=== PATIENT | female | born 1965 | race African-American/Black ===

== ENCOUNTER 2018-04-25 13:36 | Outpatient (CLI) | payer MEDICAID ==
[2018-04-25 13:52] LABS: BASOPHILS # (AUTO) 0.1 10^3/uL (0.0-0.1); EOSINOPHILS # (AUTO) 0.1 10^3/uL (0.0-0.7); HGB - HEMOGLOBIN 13.3 g/dL (12.0-16.0); LYMPHOCYTES # (AUTO) 2.7 10^3/uL (1.5-3.5); LYMPHOCYTES % (AUTO) 36.6 %; MEAN CORPUSCULAR HEMOGLOBIN 30.3 pg (27.0-31.0); MEAN CORPUSCULAR HGB CONC 33.2 g/dL (32.0-36.0); MEAN CORPUSCULAR VOLUME 91.3 fL (81.0-99.0); MEAN PLATELET VOLUME 10.2 fL (7.9-10.8); MONOCYTES # (AUTO) 0.3 10^3/uL (0.0-1.0); MONOCYTES % (AUTO) 4.4 %; NEUTROPHILS # (AUTO) 4.2 10^3/uL (1.5-6.6); PLT - PLATELET COUNT 216 10^3/uL (130-450); RED BLOOD COUNT 4.39 10^6/uL (4.20-5.40); RED CELL DISTRIBUTION WIDTH 13.6 % (12.0-15.0); WHITE BLOOD COUNT 7.4 x10^3/uL (4.8-10.8)
[2018-04-25 14:11] LABS: ALBUMIN 3.6 g/dL (3.2-5.5); ALBUMIN/GLOBULIN RATIO 1.1 (1.0-2.2); ALKALINE PHOSPHATASE 88 IU/L (42-121); ALT ALANINE AMINOTRANSFERASE 15 IU/L (10-60); AST ASPARTATE AMINOTRANSFERASE 21 IU/L (10-42); BILIRUBIN,TOTAL 0.8 mg/dL (0.2-1.0); BUN - BLOOD UREA NITROGEN 23 mg/dL (6-20); CALCIUM 9.4 mg/dL (8.5-10.3); CARBON DIOXIDE - CO2 28 mmol/L (21-32); CHLORIDE 97 mmol/L (101-111); CHOL/HDL RATIO 1.6 (<4.4); CHOLESTEROL 137 mg/dL; CREATININE 0.8 mg/dL (0.4-1.0); GFR - MDRD 91 (>89); GLUCOSE 286 mg/dL (70-100); HDL CHOLESTEROL 86 mg/dL; LDL CHOLESTEROL,CALCULATED 24 mg/dL; LDL/HDL RATIO 0.3 (<4.4); SODIUM 136 mmol/L (135-145); TOTAL PROTEIN 6.8 g/dL (6.7-8.2); VLDL CHOLESTEROL 27 mg/dL
[2018-04-25 14:21] LABS: THYROID STIMULATING HORMONE 1.1 uIU/mL (0.34-5.60)
[2018-04-25 14:40] LABS: HB2 TOTAL 14.5 g/dL; HEMOGLOBIN A1C 1.63 g/dL; HEMOGLOBIN A1C % 12.4 % (4.6-6.2)
== END 2018-04-25 13:37 | disposition home or self-care (01) ==
LOC: LAB 13:36
PROVIDERS: ATTEND Nurse Practitioner Gerontology
DX: I10 Essential (primary) hypertension (principal); E11.9 Type 2 diabetes mellitus without complications
CPT/HCPCS: 36415; 80053; 80061; 82043; 82607; 83036; 83721; 84443; 85025

== ENCOUNTER 2018-06-13 09:04 | Outpatient (CLI) | payer MEDICAID | END 2018-06-13 09:05 | disposition home or self-care (01) | LOC: RT 09:04 | PROVIDERS: ATTEND Internal Medicine Gastroenterology | DX: I10 Essential (primary) hypertension (principal); Z86.73 Personal history of transient ischemic attack (TIA), and cerebral infarction without residual deficits | CPT/HCPCS: 93005 ==

== ENCOUNTER 2018-06-16 07:07 | Day surgery (SDC) | payer MEDICAID ==
[2018-06-16] MEDS ORDERED: LACTATED RINGERS 1,000 ML IV ONE (08:14)
[2018-06-16] MEDS ORDERED: fentaNYL 250 MCG/5 ML VIAL IVP ONE (08:42)
[2018-06-16] MEDS ORDERED: MIDAZOLAM 2 MG/2 ML VIAL IVP ONE (08:42)
[2018-06-16 09:55] VITALS: BP 129/57
== END 2018-06-16 07:08 | disposition home or self-care (01) ==
LOC: SDS 07:07
PROVIDERS: ATTEND Internal Medicine Gastroenterology
PROC: 0DJD8ZZ Inspection of Lower Intestinal Tract, Via Natural or Artificial Opening Endoscopic (ICD-10-PCS; principal; 2018-06-16 08:15)
DX: Z12.11 Encounter for screening for malignant neoplasm of colon (principal); Z72.0 Tobacco use; I10 Essential (primary) hypertension; E11.9 Type 2 diabetes mellitus without complications; F41.9 Anxiety disorder, unspecified; Z79.4 Long term (current) use of insulin; Z79.899 Other long term (current) drug therapy; Z79.02 Long term (current) use of antithrombotics/antiplatelets; Z86.73 Personal history of transient ischemic attack (TIA), and cerebral infarction without residual deficits; F32.9 Major depressive disorder, single episode, unspecified
CPT/HCPCS: 45378; J3010; J7120

== ENCOUNTER 2018-08-10 12:00 | Outpatient (CLI) | payer MEDICAID ==
[2018-08-10 12:41] LABS: HB2 TOTAL 13.8 g/dL; HEMOGLOBIN A1C 0.66 g/dL; HEMOGLOBIN A1C % 6.5 % (4.6-6.2)
== END 2018-08-10 12:01 | disposition home or self-care (01) ==
LOC: LAB 12:00
PROVIDERS: ATTEND Nurse Practitioner Gerontology
DX: E11.9 Type 2 diabetes mellitus without complications (principal); E53.8 Deficiency of other specified B group vitamins
CPT/HCPCS: 36415; 82607; 83036

== ENCOUNTER 2018-11-14 09:00 | Outpatient (CLI) | payer MEDICAID ==
[2018-11-14 09:40] LABS: CALCIUM 8.6 mg/dL (8.5-10.3); CREATININE 4.4 mg/dL (0.4-1.0)
[2018-11-14 10:10] LABS: HEMOGLOBIN A1C 0.68 g/dL; HEMOGLOBIN A1C % 6.9 % (4.6-6.2)
== END 2018-11-14 09:01 | disposition home or self-care (01) ==
LOC: LAB 09:00
PROVIDERS: ATTEND Nurse Practitioner Gerontology
DX: E11.9 Type 2 diabetes mellitus without complications (principal)
CPT/HCPCS: 36415; 80048; 83036

== ENCOUNTER 2019-01-17 15:36 | Outpatient (CLI) | payer MEDICAID ==
--- NOTE | 2019-01-17 22:41 | Ultrasound Report ---
Reason: ABNORMAL KIDNEY FUNCTION Procedure Date: 01/17/2019 Accession Number: [id number] / [id number] Procedure: US - Retroperitoneal CPT Code: FULL RESULT: EXAM: RENAL ULTRASOUND EXAM DATE: 01/17/2019 04:30 PM. CLINICAL HISTORY: ABNORMAL KIDNEY FUNCTION. COMPARISON: None. TECHNIQUE: Real-time scanning was performed with static images obtained. FINDINGS: Right Kidney: 10.1 x 6 x 5.4 cm. Normal echotexture with no stones, contour-deforming masses, or hydronephrosis. Prominent column of Mario. Left Kidney: 10.1 x 5 x 5.5 cm. Normal echotexture with no stones, contour-deforming masses, or hydronephrosis. Prominent pulmonary Mario. Bladder: Neither ureteral jet seen. Bladder was contracted and not well evaluated. The postvoid bladder volume was 7.2 cc. Other: Study limited by body habitus. IMPRESSION: 1. No renal mass, stone or hydronephrosis. 2. Contracted bladder not well evaluated. 3. Study limited by body habitus. RADIA
== END 2019-01-17 15:37 | disposition home or self-care (01) ==
LOC: DI 15:36
PROVIDERS: ATTEND Internal Medicine Nephrology
DX: N28.9 Disorder of kidney and ureter, unspecified (principal)
CPT/HCPCS: 76770

== ENCOUNTER 2019-06-01 | Outpatient (CLI) | payer MEDICAID | END 2019-06-01 23:59 | disposition home or self-care (01) | DX: I10 Essential (primary) hypertension (principal); E11.9 Type 2 diabetes mellitus without complications | CPT/HCPCS: 36415; 80053; 80061; 83036; 83721; 85025 ==

== ENCOUNTER 2019-06-21 12:57 | Outpatient (CLI) | payer MEDICAID ==
[2019-06-21 13:23] LABS: CALCIUM 9.3 mg/dL (8.5-10.3)
[2019-06-21 13:31] LABS: BILIRUBIN,URINE NEGATIVE (NEGATIVE); GLUCOSE, URINE (UA) NEGATIVE (NEGATIVE); KETONES,URINE (UA) NEGATIVE (NEGATIVE); LEUKOCYTE ESTERASE, URINE LARGE (NEGATIVE); NITRITE,URINE NEGATIVE (NEGATIVE); OCCULT BLOOD,URINE NEGATIVE (NEGATIVE); PROTEIN,URINE NEGATIVE (NEGATIVE); UROBILINOGEN,URINE 0.2 (NORMAL) E.U./dL (NORMAL)
[2019-06-21 13:40] LABS: BACTERIA,URINE Many /HPF (None Seen); CLARITY,URINE CLEAR (CLEAR); SQUAMOUS EPITHELIAL CELL,UR FEW Squamous (<= Few)
== END 2019-06-21 12:58 | disposition home or self-care (01) ==
LOC: LAB 12:57
PROVIDERS: ATTEND Internal Medicine Nephrology
DX: N17.9 Acute kidney failure, unspecified (principal)
CPT/HCPCS: 36415; 80048; 81001; 87086

== ENCOUNTER 2019-07-05 13:01 | Outpatient (CLI) | payer MEDICAID ==
[2019-07-05 14:09] LABS: ALBUMIN 3.5 g/dL (3.2-5.5); CALCIUM 9.2 mg/dL (8.5-10.3); CREATININE 2.6 mg/dL (0.4-1.0); PHOSPHORUS 4.8 mg/dL (2.5-4.6)
== END 2019-07-05 13:02 | disposition home or self-care (01) ==
LOC: LAB 13:01
PROVIDERS: ATTEND Internal Medicine Nephrology
DX: N17.9 Acute kidney failure, unspecified (principal)
CPT/HCPCS: 36415; 80069

== ENCOUNTER 2019-08-02 16:07 | Outpatient (CLI) | payer MEDICAID ==
[2019-08-02 16:48] LABS: ALBUMIN 3.7 g/dL (3.2-5.5); CALCIUM 9.1 mg/dL (8.5-10.3); CREATININE 2.5 mg/dL (0.4-1.0); PHOSPHORUS 4.5 mg/dL (2.5-4.6)
== END 2019-08-02 16:08 | disposition home or self-care (01) ==
LOC: LAB 16:07
PROVIDERS: ATTEND Internal Medicine Nephrology
DX: N17.9 Acute kidney failure, unspecified (principal)
CPT/HCPCS: 36415; 80069

== ENCOUNTER 2019-09-04 18:30 | Outpatient (CLI) | payer MEDICAID ==
[2019-09-04 19:11] LABS: CALCIUM 9.8 mg/dL (8.5-10.3); CREATININE 2.2 mg/dL (0.4-1.0)
[2019-09-04 19:34] LABS: HB2 TOTAL 10.5 g/dL; HEMOGLOBIN A1C 0.58 g/dL; HEMOGLOBIN A1C % 7.2 % (4.6-6.2)
== END 2019-09-04 18:31 | disposition home or self-care (01) ==
LOC: LAB.N 18:30
PROVIDERS: ATTEND Nurse Practitioner Gerontology
DX: E11.9 Type 2 diabetes mellitus without complications (principal); N28.9 Disorder of kidney and ureter, unspecified
CPT/HCPCS: 36415; 80048; 83036

== ENCOUNTER 2019-11-27 15:11 | Outpatient (CLI) | payer MEDICAID ==
[2019-11-27 15:34] LABS: CALCIUM 9.1 mg/dL (8.5-10.3); CREATININE 2.1 mg/dL (0.4-1.0)
== END 2019-11-27 15:12 | disposition home or self-care (01) ==
LOC: LAB 15:11
PROVIDERS: ATTEND Internal Medicine Nephrology
DX: N28.9 Disorder of kidney and ureter, unspecified (principal)
CPT/HCPCS: 36415; 80048

== ENCOUNTER 2020-05-08 09:11 | Emergency (ER) | payer MEDICAID ==
--- NOTE | 2020-05-08 09:45 | CT Report ---
PROCEDURE: HEAD WO INDICATIONS: Head injury. TECHNIQUE: Noncontrast 4.5 mm thick angled axial sections acquired from the foramen magnum to the vertex. For r adiation dose reduction, the following was used: automated exposure control, adjustment of mA and/or kV according to patient size. COMPARISON: None. FINDINGS: Image quality: Excellent. CSF spaces: Basal cisterns are patent. No extra-axial fluid collections. Ventricles are normal in size and shape. Brain: No midline shift. No intracranial masses or hemorrhage. No large area of hypodensity in a la rge vascular distribution to suggest acute infarction. There is mild periventricular hypodensity. The re is distal intracranial ICA and intracranial vertebral artery atherosclerotic calcifications. Skull and face: Calvarium and visualized facial bones are intact, without suspicious lesions. Sinuses: Visualized sinuses and mastoids are clear. IMPRESSION: 1. No acute intracranial abnormality. No acute intracranial hemorrhage. 2. Findings of early onset chronic microvascular ischemic disease. Reviewed by: Anthony Yip MD on 05/08/2020 9:43 AM PDT Approved by: Anthony Yip MD on 05/08/2020 9:43 AM PDT Station ID: [id number]
[2020-05-08] MEDS ORDERED: BUFFERED LIDOCAINE 10 ML SYRINGE SUBQ STA (10:48)
--- NOTE | 2020-05-08 10:48 | ED Physician Documentation ---
PD HPI HEAD INJURY - Stated complaint Stated Complaint: HEAD INJURY - Chief complaint Chief Complaint: Trauma Hd/Nk - History obtained from History obtained from: Patient - Additional information Additional information: She was working with a lawnmower blade last night and the lawnmower was tipped on its side and it fell and the handle hit her in the left christianity and she is had persistent bleeding ever since. No headache. Tetanus is up-to-date. Review of Systems Constitutional: reports: Reviewed and negative Eyes: reports: Reviewed and negative Ears: reports: Reviewed and negative Nose: reports: Reviewed and negative Throat: reports: Reviewed and negative PD PAST MEDICAL HISTORY - Past Medical History Past Medical History: Yes Cardiovascular: Hypertension Respiratory: None Endocrine/Autoimmune: Type 2 diabetes GI: Other : Incontinence HEENT: Chronic vision loss, Other Psych: Depression, Anxiety Musculoskeletal: None Derm: Other - Present Medications Home Medications: Ambulatory Orders Medication Instructions Recorded Confirmed Aspirin [Aspirin EC] 81 tab PO DAILY 06/16/18 06/16/18 Calcium Citrate/Vitamin D3 1 tab PO DAILY 06/16/18 06/16/18 [Calcium Cit 200-Vit D3 250 Tab] Cetirizine [ZyrTEC] 10 mg PO ONCE 06/16/18 06/16/18 Cholecalciferol (Vitamin D3) 2,000 tab PO DAILY 06/16/18 06/16/18 [Vitamin D3] Clopidogrel [Plavix] 1 tab PO DAILY 06/16/18 06/16/18 Cyanocobalamin (Vitamin B-12) 1,000 mcg PO DAILY 06/16/18 06/16/18 [Vitamin B-12] Dextrose/Maltodextrin [Glucose 1 packet PO PRN PRN 06/16/18 06/16/18 Powder Packets] Ferrous Sulfate 1 tab PO DAILY 06/16/18 06/16/18 Fluconazole [Diflucan] 150 mg PO DAILY 06/16/18 06/16/18 Insulin Glargine [Lantus Solostar] 40 units SQ DAILY 06/16/18 06/16/18 Lancets 1 misc DAILY 06/16/18 06/16/18 Metformin HCl 1,000 tab PO BID 06/16/18 06/16/18 Metoprolol Tartrate 25 tab PO BID 06/16/18 06/16/18 PARoxetine [Paxil] 50 tab PO DAILY 06/16/18 06/16/18 Pen Needle, Diabetic [Pen [place]] 1 unit SQ DAILY 06/16/18 06/16/18 Simvastatin 20 tab PO DAILY 06/16/18 06/16/18 lisinopriL [Lisinopril] 1 tab PO DAILY 06/16/18 06/16/18 - Allergies Allergies/Adverse Reactions: Allergies Allergy/AdvReac Type Severity Reaction Status Date / Time No Known Drug Allergies Allergy Verified 06/16/18 08:28 - Social History Does the pt smoke?: Yes Smoking Status: Current every day smoker Does the pt drink ETOH?: No Does the pt have substance abuse?: No - Immunizations Immunizations are current?: Yes PD ED PE NORMAL - Vitals Vital signs reviewed: Yes - General General: Alert and oriented X 3, No acute distress - HEENT HEENT: PERRL, EOMI, Other (On initial exam is a little hard to tell where she is bleeding from, the hair is matted in blood. After shower and a lot of s crubbing basically she just had a little puncture wound that was persistently bleeding on the left superior christianity.) - Neck Neck: Supple, no meningeal sign, No bony TTP - Neuro Neuro: Alert and oriented X 3, No motor deficit, No sensory deficit, Normal speech Results - Vitals Vitals: Vital Signs - 24 hr 05/08/20 05/08/20 09:22 10:32 Temperature 36.1 C L Heart Rate 63 65 Respiratory 18 16 Rate Blood Pressure 171/85 H 165/78 H O2 Saturation 96 98 Oxygen O2 Source Room air - Rads (name of study) CT of the head without contrast Radiology: EMP read contemporaneously (No trauma) Procedures - Laceration (location) scalp Length in cm: 0.4 Wound type: Linear Anesthesia: Lidocaine 1%, With bicarb Wound Preparation: Irrigated copiously NS Skin layer closure: Interrupted, Sutures - enter # (2), Other (2 x 5-0 vicryl to stop the bleeding) Other: Tetanus UTD Complexity: Simple PD MEDICAL DECISION MAKING - ED course ED course: Took quite a while to get all the blood out of her hair so that the wound could even be visualized, we actually had ended up taking her over the shower, after that the wound was tiny but it had a little arterial pumper to it and this was tied off with 25 0 Vicryl sutures. Departure - Departure Disposition: 01 Home, Self Care Clinical Impression: Head injury Qualifiers: Encounter type: initial encounter Qualified Code(s): S09.90XA - Unspecified injury of head, initial encounter Scalp laceration Qualifiers: Encounter type: initial encounter Qualified Code(s): S01.01XA - Laceration without foreign body of scalp, initial encounter Condition: Good Record reviewed to determine appropriate education?: Yes Instructions: ED Head Injury Closed, ED Laceration All Comments: The suture is absorbable, should not require any specific care, okay to shower and bathe. Return for new or worsening symptoms.
[2020-05-08 11:24] VITALS: BP 155/75
== END 2020-05-08 11:24 | disposition home or self-care (01) ==
LOC: ED 09:11
DX: S09.90XA Unspecified injury of head, initial encounter (principal); S01.01XA Laceration without foreign body of scalp, initial encounter; W20.8XXA Other cause of strike by thrown, projected or falling object, initial encounter; Y93.89 Activity, other specified; I10 Essential (primary) hypertension; E11.9 Type 2 diabetes mellitus without complications; Z79.4 Long term (current) use of insulin; F17.200 Nicotine dependence, unspecified, uncomplicated
CPT/HCPCS: 12001; 70450; 99282; 99284

== ENCOUNTER 2020-06-27 12:11 | Outpatient (CLI) | payer MEDICAID ==
[2020-06-27 12:56] LABS: CREATININE,URINE 220.6 mg/dL; MICROALBUM/CREATININE RATIO,UR 127.4 ug/mg (<30.0); MICROALBUMIN,URINE 28.1 mg/dL (0-300.0)
[2020-06-27 12:59] LABS: BUN - BLOOD UREA NITROGEN 25 mg/dL (6-20); CALCIUM 9.3 mg/dL (8.5-10.3); CARBON DIOXIDE - CO2 27 mmol/L (21-32); CHLORIDE 101 mmol/L (101-111); CHOL/HDL RATIO 1.8 (<4.4); CHOLESTEROL 162 mg/dL; GLUCOSE 321 mg/dL (70-100); HDL CHOLESTEROL 92 mg/dL; LDL CHOLESTEROL,CALCULATED 60 mg/dL; LDL/HDL RATIO 0.7 (<4.4); SODIUM 137 mmol/L (135-145); VLDL CHOLESTEROL 10 mg/dL
[2020-06-27 14:12] LABS: HEMOGLOBIN A1c% 10.2 % (4.27-6.07)
== END 2020-06-27 12:12 | disposition home or self-care (01) ==
LOC: LAB 12:11
PROVIDERS: ATTEND Family Medicine
DX: E11.9 Type 2 diabetes mellitus without complications (principal); E78.5 Hyperlipidemia, unspecified
CPT/HCPCS: 36415; 80048; 80061; 82043; 82570; 83036; 83721

== ENCOUNTER 2021-07-03 11:03 | Outpatient (CLI) | payer MEDICAID ==
[2021-07-03 11:26] LABS: BASOPHILS # (AUTO) 0.1 10^3/uL (0.0-0.1); BASOPHILS % (AUTO) 0.9 %; EOSINOPHILS # (AUTO) 0.2 10^3/uL (0.0-0.7); EOSINOPHILS % (AUTO) 1.9 %; HCT - HEMATOCRIT 40.3 % (37.0-47.0); HGB - HEMOGLOBIN 12.6 g/dL (12.0-16.0); LYMPHOCYTES # (AUTO) 2.2 10^3/uL (1.5-3.5); LYMPHOCYTES % (AUTO) 23.3 %; MEAN CORPUSCULAR HGB CONC 31.3 g/dL (32.0-36.0); MEAN CORPUSCULAR VOLUME 92.9 fL (81.0-99.0); MEAN PLATELET VOLUME 11.7 fL (7.9-10.8); MONOCYTES # (AUTO) 0.5 10^3/uL (0.0-1.0); MONOCYTES % (AUTO) 4.7 %; NEUTROPHILS # (AUTO) 6.5 10^3/uL (1.5-6.6); NEUTROPHILS % (AUTO) 68.9 %; PLT - PLATELET COUNT 231 10^3/uL (130-450); RED BLOOD COUNT 4.34 10^6/uL (4.20-5.40); RED CELL DISTRIBUTION WIDTH 12.4 % (12.0-15.0); WHITE BLOOD COUNT 9.5 x10^3/uL (4.8-10.8)
[2021-07-03 11:47] LABS: % IRON SATURATION 19 % (20-50); ALBUMIN 3.7 g/dL (3.2-5.5); ALBUMIN/GLOBULIN RATIO 1.1 (1.0-2.2); ALKALINE PHOSPHATASE 150 IU/L (42-121); ALT ALANINE AMINOTRANSFERASE 12 IU/L (10-60); AST ASPARTATE AMINOTRANSFERASE 16 IU/L (10-42); BILIRUBIN,TOTAL 0.6 mg/dL (0.2-1.0); BUN - BLOOD UREA NITROGEN 35 mg/dL (6-20); CALCIUM 9.5 mg/dL (8.5-10.3); CARBON DIOXIDE - CO2 26 mmol/L (21-32); CHLORIDE 104 mmol/L (101-111); CHOL/HDL RATIO 1.6 (<4.4); CHOLESTEROL 200 mg/dL; CREATININE 2.1 mg/dL (0.4-1.0); GFR - MDRD 30 (>89); GLUCOSE 249 mg/dL (70-100); HDL CHOLESTEROL 123 mg/dL; IRON 92 ug/dL (28-170); LDL CHOLESTEROL,CALCULATED 66 mg/dL; LDL/HDL RATIO 0.5 (<4.4); SODIUM 140 mmol/L (135-145); TOTAL IRON BINDING CAPACITY 484 ug/dL (250-450); TOTAL PROTEIN 7.1 g/dL (6.7-8.2); TRANSFERRIN 346 mg/dL (192-382); TRIGLYCERIDES 55 mg/dL; VLDL CHOLESTEROL 11 mg/dL
[2021-07-03 11:56] LABS: THYROID STIMULATING HORMONE 1.82 uIU/mL (0.34-5.60)
[2021-07-03 12:04] LABS: FERRITIN 12.9 ng/mL (11.0-306.8)
[2021-07-03 12:07] LABS: FOLATE 15.15 ng/mL (5.90 - >24.8)
[2021-07-03 12:55] LABS: CREATININE,URINE 134.8 mg/dL; MICROALBUM/CREATININE RATIO,UR 488.9 ug/mg (<30.0); MICROALBUMIN,URINE 65.9 mg/dL (0-300.0)
[2021-07-03 12:56] LABS: ESTIMATED AVERAGE GLUCOSE 326 mg/dL (70-100)
== END 2021-07-03 11:04 | disposition home or self-care (01) ==
LOC: LAB 11:03
PROVIDERS: ATTEND Nurse Practitioner
DX: I10 Essential (primary) hypertension (principal); Z98.84 Bariatric surgery status
CPT/HCPCS: 36415; 80053; 80061; 82043; 82306; 82570; 82607; 82728; 82746; 83036; 83540; 83721; 84425; 84443; 84466; 84590; 85025

== ENCOUNTER 2021-07-10 16:06 | Outpatient (CLI) | payer MEDICAID | END 2021-07-10 16:07 | disposition home or self-care (01) | LOC: COV 16:06 | PROVIDERS: ATTEND Family Medicine | DX: Z20.822 Contact with and (suspected) exposure to COVID-19 (principal) ==

== ENCOUNTER 2021-10-21 08:39 | Emergency (ER) | payer MEDICAID ==
[2021-10-21 08:48] VITALS: BP 136/71
--- NOTE | 2021-10-21 08:59 | ED Physician Documentation ---
PD HPI UPPER EXT INJURY - Stated complaint Stated Complaint: L WRIST PX - Chief complaint Chief Complaint: Ext Problem - History obtained from History obtained from: Patient - Additonal information Additional information: 56-year-old woman took a fall last night while putting up [place] lights and isolated her nondominant left wrist. Pain is moderate but better with immobilization. Review of Systems Constitutional: reports: Reviewed and negative Eyes: reports: Reviewed and negative Ears: reports: Reviewed and negative Nose: reports: Reviewed and negative Throat: reports: Reviewed and negative PD PAST MEDICAL HISTORY - Past Medical History Cardiovascular: Hypertension Respiratory: None Endocrine/Autoimmune: Type 2 diabetes GI: Other : Incontinence HEENT: Chronic vision loss, Other Psych: Depression, Anxiety Musculoskeletal: None Derm: Other - Present Medications Home Medications: Ambulatory Orders Medication Instructions Recorded Confirmed Aspirin [Aspirin EC] 81 tab PO DAILY 06/16/18 06/16/18 Calcium Citrate/Vitamin D3 1 tab PO DAILY 06/16/18 06/16/18 [Calcium Cit 200-Vit D3 250 Tab] Cetirizine [ZyrTEC] 10 mg PO ONCE 06/16/18 06/16/18 Cholecalciferol (Vitamin D3) 2,000 tab PO DAILY 06/16/18 06/16/18 [Vitamin D3] Clopidogrel [Plavix] 1 tab PO DAILY 06/16/18 06/16/18 Cyanocobalamin (Vitamin B-12) 1,000 mcg PO DAILY 06/16/18 06/16/18 [Vitamin B-12] Dextrose/Maltodextrin [Glucose 1 packet PO PRN PRN 06/16/18 06/16/18 Powder Packets] Ferrous Sulfate 1 tab PO DAILY 06/16/18 06/16/18 Fluconazole [Diflucan] 150 mg PO DAILY 06/16/18 06/16/18 Insulin Glargine [Lantus Solostar] 40 units SQ DAILY 06/16/18 06/16/18 Lancets 1 misc DAILY 06/16/18 06/16/18 Metformin HCl 1,000 tab PO BID 06/16/18 06/16/18 Metoprolol Tartrate 25 tab PO BID 06/16/18 06/16/18 PARoxetine [Paxil] 50 tab PO DAILY 06/16/18 06/16/18 Pen Needle, Diabetic [Pen [place]] 1 unit SQ DAILY 06/16/18 06/16/18 Simvastatin 20 tab PO DAILY 06/16/18 06/16/18 lisinopriL [Lisinopril] 1 tab PO DAILY 06/16/18 06/16/18 HYDROcod/ACETAM 5/325 [[place] 5/325] 1 - 2 tab PO Q6H PRN #10 tablet 10/21/21 - Allergies Allergies/Adverse Reactions: Allergies Allergy/AdvReac Type Severity Reaction Status Date / Time No Known Drug Allergies Allergy Verified 10/21/21 08:48 - Social History Does the pt smoke?: Yes Smoking Status: Current every day smoker Does the pt drink ETOH?: No Does the pt have substance abuse?: No - Immunizations Immunizations are current?: Yes PD ED PE NORMAL - Vitals Vital signs reviewed: Yes - General General: Alert and oriented X 3, No acute distress - Extremities Extremities: Other (Focally tender over the left distal radius and her hand is swollen, no snuffbox tenderness nor tenderness with axial loading of the thumb.) - Neuro Neuro: Alert and oriented X 3, Normal speech Results - Vitals Vitals: Vital Signs - 24 hr 10/21/21 08:42 Temperature 36.6 C Heart Rate 69 Respiratory 15 Rate Blood Pressure 136/71 H O2 Saturation 100 Oxygen O2 Source Room air PD MEDICAL DECISION MAKING - ED course ED course: Left wrist x-ray interpreted contemporaneously by me shows no acute trauma, she does have extensive vascular disease and was counseled on risk factors, tobacco use, blood pressure control, healthy eating etc. Placed in a Velcro splint for comfort. I am prescribing a short course of short-acting opioid pain medication for this patient. I have reviewed the patients [employer] and no concerning findings were noted. I have discussed that the opioids are for short term therapy only, and will not be refilled from the ED. Departure - Departure Disposition: 01 Home, Self Care Clinical Impression: Left wrist sprain Qualifiers: Encounter type: initial encounter Qualified Code(s): S63.502A - Unspecified sprain of left wrist, initial encounter Condition: Good Record reviewed to determine appropriate education?: Yes Instructions: ED Sprain Wrist Prescriptions: HYDROcod/ACETAM 5/325 [[place] 5/325] 1 - 2 tab PO Q6H PRN #10 tablet PRN Reason: Pain Comments: Your prescription was sent electronically to the [facility] pharmacy in [place] at the corner of [address] Return for new or worsening symptoms. Follow-up with your doctor in a week or 2 if not improved. You can wear the splint as needed for comfort, you do not need to wear it religiously. I am prescribing a short course of narcotic pain medication for you. These are potentially dangerous and addictive medications that should be used carefully. These medications may constipate you. Take an byxd-ure-owgwrwr stool softener (docusate) twice daily with plenty of water while taking these medications. If you go 24 hours without a bowel movement, take [id number] miralax, per package instructions. Do not drink or drive while taking these medications. If you received narcotic or sedating medications while in the emergency department, do not drive for 24 hours. Store this medication in a safe, secure place and out of reach of children. It is a violation of federal law to give or sell this medication to another person or to use in a manner other than prescribed. The ED will not refill narcotic prescriptions, including prescriptions lost or stolen. To dispose of unwanted medications: 1. [facility] [address] in [place] has a medication drop box. They accept prescription medications (in pill form) Wednesday through Wednesday 9:00 a.m. to 5:00 p.m. 2. The [facility] [employer] accepts prescription medications (in pill form only) for disposal year round. Call for more information. 3. Contact the [facility] for the next [facility] sponsored prescription drug collection event. , [phone], or [phone]; Note that many narcotic pain relievers also contain Tylenol/acetaminophen. Please ensure that your total dose of acetaminophen from all sources does not exceed 3 g (3000 mg) per day. Forms: Activity restrictions
--- NOTE | 2021-10-21 09:35 | XRAY Report ---
PROCEDURE: Wrist 4 View LT INDICATIONS: Trauma TECHNIQUE: 4 views of the wrist were acquired. COMPARISON: None FINDINGS: Bones: Decreased mineralization. No displaced fractures or dislocations. No suspicious bony lesions. Scaphoid view: Intact scaphoid. Soft tissues: No suspicious soft tissue calcifications. Heavy atherosclerotic calcification. IMPRESSION: 1. No visible fractures. 2. Heavy atherosclerotic calcification. Reviewed by: Eugenie Montgomery MD on 10/21/2021 9:34 AM [facility] Approved by: Eugenie Montgomery MD on 10/21/2021 9:34 AM PST Station ID: [id number]
== END 2021-10-21 11:29 | disposition home or self-care (01) ==
LOC: ED 08:39
DX: S63.502A Unspecified sprain of left wrist, initial encounter (principal); W19.XXXA Unspecified fall, initial encounter; Y93.89 Activity, other specified; I10 Essential (primary) hypertension; E11.9 Type 2 diabetes mellitus without complications; Z79.4 Long term (current) use of insulin
CPT/HCPCS: 99282; 99283

== ENCOUNTER 2022-03-19 23:49 | Outpatient (CLI) | payer MEDICAID | END 2022-03-19 23:50 | disposition critical access hospital (66) | LOC: EMS 23:49 | DX: R47.81 Slurred speech (principal); R26.2 Difficulty in walking, not elsewhere classified; R20.2 Paresthesia of skin | CPT/HCPCS: A0425; A0429; A0999 ==

== ENCOUNTER 2022-03-19 23:51 | Emergency (ER) | payer MEDICAID ==
--- NOTE | 2022-03-20 00:06 | ED Physician Documentation ---
PD HPI FOCAL NEURO - Stated complaint Stated Complaint: Tingling, difficulty walking and speech - Chief complaint Chief Complaint: Neuro - Additional information Additional information: Patient is a 56-year-old female presenting to the emergency departmentWith left- sided numbness and weakness. Patient endorses for 2 previous strokes, states that she has persistent left-sided weakness. Reports symptoms that began Wednesday which are primarily general body numbness and tingling worse on the left. Reports this evening symptoms worsened with increasing general body weakness left greater than right. Denies for any fever, chills, chest pain, head trauma, nausea, vomiting, diarrhea, constipation. She reports a history of diabetes, dyslipidemia. Also states that she has persistent left-sided weakness in comparison to right from her previous CVAs. Currently states that she feels as though her symptoms have resolved. Review of Systems Ten Systems: 10 systems reviewed and negative Constitutional: denies: Fever Eyes: denies: Loss of vision Ears: denies: Loss of hearing Nose: denies: Rhinorrhea / runny nose Throat: denies: Dental pain / toothache Cardiac: denies: Chest pain / pressure Respiratory: denies: Dyspnea GI: denies: Abdominal Pain : denies: Dysuria Skin: denies: Rash Musculoskeletal: denies: Neck pain Neurologic: reports: Focal weakness, Numbness Psychiatric: denies: Depressed Endocrine: denies: Polydypsia Immunocompromised: denies: Immunocompromised PD PAST MEDICAL HISTORY - Past Medical History Cardiovascular: Hypertension Respiratory: None Neuro: None Endocrine/Autoimmune: Type 2 diabetes GI: Other : Incontinence HEENT: Chronic vision loss, Other Psych: Depression, Anxiety Musculoskeletal: None Derm: Other - Past Surgical History Past Surgical History: No - Present Medications Home Medications: Ambulatory Orders Medication Instructions Recorded Confirmed Aspirin [Aspirin EC] 81 tab PO DAILY 06/16/18 06/16/18 Calcium Citrate/Vitamin D3 1 tab PO DAILY 06/16/18 06/16/18 [Calcium Cit 200-Vit D3 250 Tab] Cetirizine [ZyrTEC] 10 mg PO ONCE 06/16/18 06/16/18 Cholecalciferol (Vitamin D3) 2,000 tab PO DAILY 06/16/18 06/16/18 [Vitamin D3] Clopidogrel [Plavix] 1 tab PO DAILY 06/16/18 06/16/18 Cyanocobalamin (Vitamin B-12) 1,000 mcg PO DAILY 06/16/18 06/16/18 [Vitamin B-12] Dextrose/Maltodextrin [Glucose 1 packet PO PRN PRN 06/16/18 06/16/18 Powder Packets] Ferrous Sulfate 1 tab PO DAILY 06/16/18 06/16/18 Fluconazole [Diflucan] 150 mg PO DAILY 06/16/18 06/16/18 Insulin Glargine [Lantus Solostar] 40 units SQ DAILY 06/16/18 06/16/18 Lancets 1 misc DAILY 06/16/18 06/16/18 Metformin HCl 1,000 tab PO BID 06/16/18 06/16/18 Metoprolol Tartrate 25 tab PO BID 06/16/18 06/16/18 PARoxetine [Paxil] 50 tab PO DAILY 06/16/18 06/16/18 Pen Needle, Diabetic [Pen [place]] 1 unit SQ DAILY 06/16/18 06/16/18 Simvastatin 20 tab PO DAILY 06/16/18 06/16/18 lisinopriL [Lisinopril] 1 tab PO DAILY 06/16/18 06/16/18 HYDROcod/ACETAM 5/325 [[place] 5/325] 1 - 2 tab PO Q6H PRN #10 tablet 10/21/21 - Allergies Allergies/Adverse Reactions: Allergies Allergy/AdvReac Type Severity Reaction Status Date / Time No Known Drug Allergies Allergy Verified 10/21/21 08:48 - Social History Does the pt smoke?: Yes Smoking Status: Current every day smoker Does the pt drink ETOH?: No Does the pt have substance abuse?: No - Immunizations Immunizations are current?: Yes - POLST Patient has POLST: No PD ED PE NORMAL - Vitals Vital signs reviewed: Yes - General General: Alert and oriented X 3 - HEENT HEENT: Atraumatic, PERRL, EOMI, Ears normal, Moist mucous membranes, Pharynx benign - Neck Neck: Supple, no meningeal sign, No bony TTP, No adenopathy, No JVD, No bruit - Cardiac Cardiac: RRR, No murmur, No gallop, No rub, Strong equal pulses - Respiratory Respiratory: No respiratory distress, Clear bilaterally - Abdomen Abdomen: Normal bowel sounds, Non tender - Female Female : Deferred - Rectal Rectal: Deferred PD ED PE EXPANDED - Neuro Neuro: Alert and Oriented X 3, Weakness (Left upper extremity 4/5, right upper extremity 5/5, left lower extremity 4/5, right upper extremity 5/5, mild left- sided facial droop.) NIHSS - Level of Consciousness Level of consciousness: (0) Alert, Keenly responsive LOC Questions: (0) Answers both Q's correct - Gaze Best Gaze: (0) Normal - Visual Visual: (0) No loss - Facial Palsy Facial Palsy: (0) Normal, symmetrical movement - Motor Arms (both separate) Motor Arm (right): (0) No drift Motor Arm (left): (0) No drift - Motor Legs (both separate) Motor Leg (right): (0) No drift Motor Leg (left): (0) No drift - Limb Ataxia Limb Ataxia: (0) Absent - Sensory Sensory: (0) Normal - Best Language Best Language: (0) No aphasia - Dysarthria Dysarthria: (0) Normal - Extinction and Inattention (formally neg Extinction and inattention: (0) No abnormality Results - Vitals Vitals: Vital Signs - 24 hr 03/19/22 03/20/22 03/20/22 23:56 00:02 02:02 Temperature 36.3 C L Heart Rate 83 70 74 Respiratory 16 14 14 Rate Blood Pressure 158/83 H 156/86 H 161/84 H O2 Saturation 97 99 98 03/20/22 03/20/22 03/20/22 04:00 04:15 06:00 Temperature Heart Rate 74 66 73 Respiratory 18 20 18 Rate Blood Pressure 146/80 H 170/95 H O2 Saturation 98 98 98 Oxygen O2 Source Room air - EKG (time done) 0015 Rate: Rate (enter#) (66) Rhythm: NSR Powell: RAD Intervals: Normal [place] QRS: Normal Ischemia: Normal ST segments Computer interpretation: Disagree with computer (Lat leads WNL) - Labs Labs: Laboratory Tests 03/20/22 03/20/22 03/20/22 00:20 00:29 00:29 WBC 8.6 RBC 4.42 Hgb 12.7 Hct 39.6 MCV 89.6 MCH 28.7 MCHC 32.1 RDW 12.6 Plt Count 230 MPV 11.2 H Neut # (Auto) 5.0 Lymph # (Auto) 2.7 [place] # (Auto) 0.6 Eos # (Auto) 0.2 Baso # (Auto) 0.1 Absolute Nucleated RBC 0.00 Nucleated RBC % 0.0 PT 10.9 INR 1.0 Sodium Potassium Chloride Carbon Dioxide Anion Gap BUN Creatinine Estimated GFR (MDRD) Glucose Calcium Total Bilirubin AST ALT Alkaline Phosphatase Total Protein Albumin Globulin Albumin/Globulin Ratio Lipase TSH Urine Color Urine Clarity Urine pH Ur Specific [place] Urine Protein Urine Glucose (UA) Urine Ketones Urine Occult Blood Urine Nitrite Urine Bilirubin Urine Urobilinogen Ur Leukocyte Esterase Urine RBC Urine WBC Ur Squamous Epith Cells Urine Bacteria Ur Microscopic Review Urine Culture Comments Urine Opiates Screen Ur Oxycodone Screen Urine Methadone Screen Ur Propoxyphene Screen Ur Barbiturates Screen Ur Tricyclics Screen Ur Phencyclidine Scrn Ur Amphetamine Screen U Methamphetamines Scrn U Benzodiazepines Scrn Urine Cocaine Screen U Cannabinoids Screen Ethyl Alcohol SARS-CoV-2 (PCR) NOT DETECTED 03/20/22 03/20/22 03/20/22 00:29 00:29 00:45 WBC RBC Hgb Hct MCV MCH MCHC RDW Plt Count MPV Neut # (Auto) Lymph # (Auto) [place] # (Auto) Eos # (Auto) Baso # (Auto) Absolute Nucleated RBC Nucleated RBC % PT INR Sodium 138 Potassium 3.9 Chloride 103 Carbon Dioxide 24 Anion Gap 11.0 BUN 35 H Creatinine 2.1 H Estimated GFR (MDRD) 29 L Glucose 281 H Calcium 9.7 Total Bilirubin 0.2 AST 19 ALT 11 Alkaline Phosphatase 140 H Total Protein 7.3 Albumin 3.6 Globulin 3.7 Albumin/Globulin Ratio 1.0 Lipase 69 H TSH 3.63 Urine Color YELLOW Urine Clarity CLEAR Urine pH 6.0 Ur Specific [place] 1.020 Urine Protein 100 H Urine Glucose (UA) 500 H Urine Ketones NEGATIVE Urine Occult Blood SMALL H Urine Nitrite NEGATIVE Urine Bilirubin NEGATIVE Urine Urobilinogen 0.2 (NORMAL) Ur Leukocyte Esterase NEGATIVE Urine RBC 0-5 Urine WBC 0-3 Ur Squamous Epith Cells FEW Squamous Urine Bacteria Rare Ur Microscopic Review INDICATED Urine Culture Comments NOT INDICATED Urine Opiates Screen NEGATIVE Ur Oxycodone Screen NEGATIVE Urine Methadone Screen NEGATIVE Ur Propoxyphene Screen NEGATIVE Ur Barbiturates Screen NEGATIVE Ur Tricyclics Screen NEGATIVE Ur Phencyclidine Scrn NEGATIVE Ur Amphetamine Screen NEGATIVE U Methamphetamines Scrn NEGATIVE U Benzodiazepines Scrn NEGATIVE Urine Cocaine Screen NEGATIVE U Cannabinoids Screen POSITIVE H Ethyl Alcohol < 5.0 SARS-CoV-2 (PCR) PD MEDICAL DECISION MAKING - ED course Complexity details: reviewed results, d/w patient, d/w leasing sales consultant ED course: Patient is 56-year-old female with known history of hypertension, dyslipidemia and previous CVAs with consistent left-sided deficits that came in last night after an event of acute increased left-sided weakness with speech difficulties. Endorsed for abnormal sensorium and left-sided numbness on arrival however her symptoms largely resolved shortly after arrival to the emergency department. She did have some persistent left-sided facial droop and left upper and lower extremity weakness which she reports is consistent with her baseline. I did obtain comprehensive labs which were within normal limits or nonactionable. Of note patient does have chronic renal insufficiency and her creatinine of 2.1 at this ER evaluation is consistent with at baseline. The CT of her head was nonacute. I was unable to obtain a CTA given her renal dysfunction. She was observed in the emergency department for several hours and over which time all of her symptoms resolved. I did consult with our hospitalist service who declined to hospitalize the patient given that at this time [facility] does not have MRI capability and does not expect to have MRI capability until Wednesday. I discussed all of these findings with the patient. I offered boarding here in the emergency department and Transfer to a facility with the appropriate diagnostic capabilities. I did also explain to the patient that at this time [facility] is in a crisis for medical resources and that there may be an extended boarding time in the emergency department. The patient reported that she is not interested in staying in the emergency department further, and that she would like to be discharged. I did express my concern that her event, if it does not fact represent a true transient ischemic attack, could portend an increased risk for larger, potentially massive or permanently debilitating or deadly stroke in the immediate future. She verbalized understanding of this risk however did express that it was her desire to be discharged at this time. I encouraged her to continue taking both her aspirin and Plavix as well as to follow-up with her primary care doctor soon as possible. She was encouraged to return to the emergency department for any new or worsening symptoms. Departure - Departure Disposition: 01 Home, Self Care Clinical Impression: TIA (transient ischemic attack) Instructions: ED Transient Ischemic Attack Comments: Thank you for allowing us to care for you today at [facility]. Would like to thank you for your patience with us here in the emergency department. All the testing performed in the emergency department today including your head CT and lab work were all very reassuring. However as we discussed I am concerned that the symptoms you presented with may represent a transient ischemic attack. This is often referred to as a "mini stroke". These events can often predict an increased risk for stroke in the near future. I am sorry they were not able to perform the diagnostic testingHe would benefit from here at [facility]. I do need you to understand that you chose to leave the emergency department may represent a risk in the form of a loss of opportunity to treat or prevent a recurrent stroke if it should occur. I want you to contact your primary care doctor soon as possible in order to make arrangements for follow-up. Please if it anytime you have any new or worsening symptoms I like you to return to the emergency department as soon as possible.
[2022-03-20 00:35] LABS: BASOPHILS # (AUTO) 0.1 10^3/uL (0.0-0.1); BASOPHILS % (AUTO) 0.8 %; EOSINOPHILS # (AUTO) 0.2 10^3/uL (0.0-0.7); EOSINOPHILS % (AUTO) 2.8 %; HCT - HEMATOCRIT 39.6 % (37.0-47.0); HGB - HEMOGLOBIN 12.7 g/dL (12.0-16.0); LYMPHOCYTES # (AUTO) 2.7 10^3/uL (1.5-3.5); LYMPHOCYTES % (AUTO) 31.2 %; MEAN CORPUSCULAR HEMOGLOBIN 28.7 pg (27.0-31.0); MEAN CORPUSCULAR HGB CONC 32.1 g/dL (32.0-36.0); MEAN CORPUSCULAR VOLUME 89.6 fL (81.0-99.0); MEAN PLATELET VOLUME 11.2 fL (7.9-10.8); MONOCYTES # (AUTO) 0.6 10^3/uL (0.0-1.0); MONOCYTES % (AUTO) 6.9 %; NEUTROPHILS % (AUTO) 58.2 %; PLT - PLATELET COUNT 230 10^3/uL (130-450); RED BLOOD COUNT 4.42 10^6/uL (4.20-5.40); RED CELL DISTRIBUTION WIDTH 12.6 % (12.0-15.0); WHITE BLOOD COUNT 8.6 x10^3/uL (4.8-10.8)
[2022-03-20 00:42] LABS: PT - PROTHROMBIN TIME 10.9 secs (9.9-12.6)
[2022-03-20 00:50] LABS: ALBUMIN 3.6 g/dL (3.2-5.5); ALKALINE PHOSPHATASE 140 IU/L (42-121); ALT ALANINE AMINOTRANSFERASE 11 IU/L (10-60); AST ASPARTATE AMINOTRANSFERASE 19 IU/L (10-42); BILIRUBIN,TOTAL 0.2 mg/dL (0.2-1.0); BUN - BLOOD UREA NITROGEN 35 mg/dL (6-20); CALCIUM 9.7 mg/dL (8.5-10.3); CARBON DIOXIDE - CO2 24 mmol/L (21-32); CHLORIDE 103 mmol/L (101-111); CREATININE 2.1 mg/dL (0.4-1.0); ETOH - ETHANOL < 5.0 mg/dL; GFR - MDRD 29 (>89); GLUCOSE 281 mg/dL (70-100); LIPASE 69 U/L (22-51); POTASSIUM 3.9 mmol/L (3.5-5.0); SODIUM 138 mmol/L (135-145); TOTAL PROTEIN 7.3 g/dL (6.7-8.2)
[2022-03-20 00:51] LABS: MUDS CUTOFF CONCENTRATIONS CUTOFF CONC BELOW:
[2022-03-20 00:53] LABS: BILIRUBIN,URINE NEGATIVE (NEGATIVE); GLUCOSE, URINE (UA) 500 mg/dL (NEGATIVE); KETONES,URINE (UA) NEGATIVE (NEGATIVE); LEUKOCYTE ESTERASE, URINE NEGATIVE (NEGATIVE); NITRITE,URINE NEGATIVE (NEGATIVE); OCCULT BLOOD,URINE SMALL (NEGATIVE); PROTEIN,URINE 100 mg/dL (NEGATIVE); UROBILINOGEN,URINE 0.2 (NORMAL) E.U./dL (NORMAL)
[2022-03-20 01:02] LABS: BACTERIA,URINE Rare /HPF (None Seen); CLARITY,URINE CLEAR (CLEAR); RBC,URINE 0-5 /HPF (0-5); SQUAMOUS EPITHELIAL CELL,UR FEW Squamous (<= Few); WBC,URINE 0-3 /HPF (0-5)
[2022-03-20 01:03] LABS: AMPHETAMINE SCREEN,URINE NEGATIVE (NEGATIVE); BARBITURATE SCREEN,UR NEGATIVE (NEGATIVE); BENZODIAZEPINES SCREEN, URINE NEGATIVE (NEGATIVE); COCAINE SCREEN URINE NEGATIVE (NEGATIVE); METHADONE SCREEN, URINE NEGATIVE (NEGATIVE); METHAMPHETAMINES SCREEN, URINE NEGATIVE (NEGATIVE); OPIATE SCREEN, URINE NEGATIVE (NEGATIVE); OXYCODONE SCREEN, URINE NEGATIVE (NEGATIVE); PROPOXYPHENE SCREEN, URINE NEGATIVE (NEGATIVE); THC CANNABINOID SCREEN, URINE POSITIVE (NEGATIVE); TRICYCLIC ANTIDEPRESSANT,URINE NEGATIVE (NEGATIVE)
[2022-03-20 06:24] VITALS: BP 170/95
--- NOTE | 2022-03-20 07:21 | CT Report ---
PROCEDURE: HEAD WO INDICATIONS: TIA TECHNIQUE: Noncontrast 4.5 mm thick angled axial sections acquired from the foramen magnum to the vertex. For r adiation dose reduction, the following was used: automated exposure control, adjustment of mA and/or kV according to patient size. COMPARISON: 05/08/2020 FINDINGS: Image quality: Excellent. CSF spaces: Basal cisterns are patent. No extra-axial fluid collections. The ventricles are symmet kayla in size and shape. Brain: No intracranial bleeds or masses. Multiple, small, chronic lacunar infarcts involving the rig ht thalamus, right basal ganglia, left mohamud radiata in the jennifer. There is cerebral volume loss for age, with resultant ventricular and sulcal prominence. There are periventricular and deep white yue er chronic small vessel ischemic changes. There is intracranial internal carotid artery and vertebra l artery atherosclerosis. Skull and face: Calvarium and visualized facial bones appear intact, without suspicious lesions. Sinuses: Visualized sinuses and mastoids are clear. IMPRESSION: No acute intracranial disease process. Reviewed by: Blanca Vega MD, PhD on 03/20/2022 7:20 AM PDT Approved by: Blanca Vega MD, PhD on 03/20/2022 7:20 AM PDT Station ID: [id number]
== END 2022-03-20 07:20 | disposition home or self-care (01) ==
LOC: EDUNIT# → ED 23:51
DX: G45.9 Transient cerebral ischemic attack, unspecified (principal); F17.200 Nicotine dependence, unspecified, uncomplicated; Z20.822 Contact with and (suspected) exposure to COVID-19
CPT/HCPCS: 36415; 80053; 80306; 80320; 81001; 81003; 83690; 84443; 85025; 85610; 87086; 93005; 99284